=== PATIENT | male | born 1970 | race Caucasian/White ===

== ENCOUNTER 2018-06-27 13:07 | Emergency (ER) | payer SELFPAY ==
[~2018-06-27] VITALS: Ht 180.3 cm; Wt 89.8 kg
[2018-06-27 13:14] VITALS: BP 136/72
--- NOTE | 2018-06-27 13:15 | NUR ---
Patient ambulated to bed 8 at this time.
--- NOTE | 2018-06-27 13:20 | NUR ---
PT CAME IN WITH C/O 7/10 LEFT SIDE CHEST PAIN NONPROVOKED RADIATING TO NECK AND LEFT ARM STARTED YESTERDAY AT 0700. ALSO C/O MILD SOB AND NAUSEA. LUNGS CTAB, RESPIRATIONS EVEN AND UNLABORED SATS 98% RA. ABD SOFT, NONTENDER, NORMOACTIVE X4, DENIES V/D. SKIN NONDIAPHORETIC, D/I. DENIES PMH. PT PLACED ON CM/PULSE OX. DR BOCANEGRA AT BEDSIDE
[2018-06-27] MEDS ORDERED: KETOROLAC 30 MG/ML VIAL IVP ONE (13:35)
[2018-06-27] MEDS ORDERED: ASPIRIN 81 MG TAB.CHEW PO ONE (13:35)
[2018-06-27 13:47] LABS: BASOPHILS % (AUTO) 0.4 % (0.0-2.0); EOSINOPHILS # (AUTO) 0.2 K/uL (0-0.4); EOSINOPHILS % (AUTO) 2.4 % (0.0-4.0); HEMATOCRIT 41.6 % (36-52); HEMOGLOBIN 14.4 g/dL (12.0-18.0); LYMPHOCYTES # (AUTO) 2.4 K/uL (2.0-11.5); LYMPHOCYTES % (AUTO) 23.6 % (20.5-51.1); MEAN CORPUSCULAR HEMOGLOBIN 30 pg (27-31); MEAN CORPUSCULAR HGB CONC 35 g/dL (33-37); MEAN CORPUSCULAR VOLUME 87.8 fL (80-94); MONOCYTES # (AUTO) 0.6 K/uL (0.8-1.0); MONOCYTES % (AUTO) 5.5 % (1.7-9.3); NEUTROPHILS # (AUTO) 6.9 K/uL (1.8-7.7); NEUTROPHILS % (AUTO) 68.1 % (42.2-75.2); PLATELET COUNT (AUTO) 302 K/uL (140-450); RED BLOOD CELL COUNT(AUTO) 4.74 MIL/uL (4.20-6.10); RED CELL DISTRIBUTION WIDTH 13.2 % (11.6-13.7); WHITE BLOOD COUNT (AUTO) 10.1 K/uL (4.8-10.8)
[2018-06-27 14:06] LABS: ANION GAP 11.6 (8-16); CARBON DIOXIDE 27.7 mmol/L (21-32); CREATININE 1.1 mg/dL (0.7-1.3); POTASSIUM 3.3 mmol/L (3.5-5.1)
[2018-06-27 14:12] LABS: ALBUMIN 3.9 g/dL (3.4-5.0); TOTAL BILIRUBIN 0.6 mg/dL (0.0-1.0)
--- NOTE | 2018-06-27 14:23 | NUR ---
PT CONTINUE ON MONITOR. NO SOB OR ACUTE RESPIRATORY DISTRESS NOTED AT THIS TIME.
--- NOTE | 2018-06-27 15:31 | NUR ---
Patient discharged with v/s stable. Written and verbal after care instructions given and explained to the pt. and family. Patient alert, oriented and verbalized understanding of instructions. Ambulatory with steady gait. All questions addressed prior to discharge. ID band removed. Patient advised to follow up with PMD. Rx of NAPROSYN given. Patient educated on indication of medication including possible reaction and side effects. Opportunity to ask questions provided and answered.
[2018-06-27 15:32] VITALS: BP 102/66
== END 2018-06-27 15:31 | disposition home or self-care (01) ==
LOC: MED 13:07
DX: M19.011 Primary osteoarthritis, right shoulder (principal); R07.89 Other chest pain; R42 Dizziness and giddiness; M54.2 Cervicalgia; R06.02 Shortness of breath
CPT/HCPCS: 36415; 71045; 73030; 80053; 84484; 85025; 93005; 96374; 99284; J1885; Q0092